=== PATIENT | male | born 1945 | race Caucasian/White ===

== ENCOUNTER 2024-08-09 14:40 | Emergency (ER) | payer OTHER, SELFPAY ==
[2024-08-09 14:43] VITALS: BP 149/57; PULSE 57; RESP 18; TEMP 36.6; O2SAT 99; BMI 22.3
--- NOTE | 2024-08-09 15:04 | ED_ITS ---
HPI - General Adult General Date Seen: 08/09/24 Chief complaint: Ear/Nose/Throat Problem Stated complaint: Left ear red and swollen Time Seen by Provider: 08/09/24 14:45 History of Present Illness HPI narrative: Very pleasant 78-year-old male. He is generally healthy. He gets his regular primary care through the [facility]. He has no history of diabetes, cancer, immunosuppression, or previous ear problems. He was referred to the emergency department today by the NH nurse triage line. History is obtained from the patient and supplemented by his . They note that he has had episodes of pain and sensitivity in his left ear for the past several weeks or even a couple of months. He notes that it is generally not bothersome during the day but sometimes when he sleeps with his left ear resting on the pillow he wakes up because of the pressure on his ear. He has not had any trouble with his hearing. No drainage or bleeding from his ear. He does not wear hearing aids or regularly wear ear plugs. Sometimes he does wear ear but headphones any does do a lot of swimming. Also from time to time he has had a little bit of pain in his left upper jaw/maxillary sinus this seems to correspond when his left ear is sensitive. He has not had any fever. No h eadache. No confusion. No blurry vision. In addition to that he has also had some ongoing discomfort in his left shoulder, that he thinks maybe arthritis. He notes that the shoulder pain is fairly chronic but actually sometimes gets better after swimming. Sometimes shoulder pain radiates down to his chest. When he woke up this morning his left ear was hurting any his also noted that the pain of his left ear looked a little bit red and swollen. The redness of the pinna is a new finding and has not been present before. No other new symptoms. No new fever. No new headache. No nausea or vomiting. He thinks he may have been sent to the ER today by the [facility] triage line because he told the nurse about his shoulder and chest pain. Related Data Previous Rx's ?Medication ?Instructions ?Recorded ciprofloxacin 0.3 %-dexamethasone 4 drp Otic (ear-left) BID 7 days 08/09/24 0.1 % ear drops,suspension #7.5 mL Allergies Allergy/AdvReac Type Severity Reaction Status Date / Time No Known Drug Allergies Allergy Verified 08/09/24 14:50 [facility] Social History Smoking Status: Never smoker Do you use any of these nicotine containing products: None Second hand tobacco smoke exposure: No How often do you have a drink containing alcohol: monthly or less How often do you have six or more drinks on one occasion: Never AUDIT-C Alcohol total score: 1 Non-prescribed substance use: denies use Exam Narrative: Exam Narrative: Constitutional: Appears well-developed and well-nourished. Active. Non-toxic appearing. Very polite. HENT: Head: Atraumatic. No signs of injury. No depressed skull fracture, Raccoon Eyes, Gnuyen's sign, or hemotympanum. Face normal. TMs normal. Right ear: Pinna, mastoid, canal are normal save for a small amount of dry skin on the lining of the canal. No foreign body. Left ear: Pinna is slightly red. Is not tender or warm to the touch. Mastoid is normal without redness or tenderness. Periauricular tissues are normal. In the canal there is some whitish exudate of material suggestive for otitis externa. No active bleeding. No sign of foreign body. TM slightly dull but not erythematous or bulging. Nose: No nasal discharge. Mouth/Throat: Mucous membranes are moist. Pharynx is normal. Tonsils symmetric. Uvula midline. Airway patent. Dentition and gums are normal. He has had root canal and crowns on his left upper molars. No signs of a gingival erythema or swelling. Eyes: Conjunctivae normal and EOM are normal. Pupils are equal, round, and reactive to light. Right eye exhibits no discharge. Left eye exhibits no discharge. No icterus. Neck: Normal range of motion. Neck supple. No adenopathy. No stridor. Cardiovascular: Normal rate and regular rhythm. No murmur heard. No murmurs, rubs, or gallops. Brisk capillary refill Pulmonary/Chest: Effort normal. No stridor. No respiratory distress. No wheezes.No rhonchi. No rales. No retractions. Musculoskeletal: Normal range of motion. No edema. No tenderness. No deformity. Neurological: Alert. Normal strength. No cranial nerve deficit or sensory deficit. Coordination normal. GCS eye subscore is 4. GCS verbal subscore is 5. GCS motor subscore is 6. Skin: Skin is warm. No rash noted. Const: Vital Signs, click to edit/add: Vital Signs - 24 hr 08/09/24 14:43 Temperature 97.8 F Pulse Rate [Pulse Oximeter] 57 L Respiratory Rate 18 Blood Pressure [Ri ght Upper Arm] 149/57 H Pulse Oximetry 99 Oxygen Delivery Me thod Room Air Course Vital Signs Vital signs: Initial Vital Signs Temperature 97.8 F 08/09/24 14:43 Temperature Source Temporal Artery Scan 08/09/24 14:43 Pulse Rate 57 L 08/09/24 14:43 Respiratory Rate 18 08/09/24 14:43 Blood Pressure 149/57 H 08/09/24 14:43 Blood Pressure Mean 87 08/09/24 14:43 Blood Pressure Position Sitting 08/09/24 14:43 Pulse Oximetry 99 08/09/24 14:43 Oxygen Delivery Method Room Air 08/09/24 14:43 Vital Signs Temperature 97.8 F 08/09/24 14:43 Pulse Rate 57 L 08/09/24 14:43 Respiratory Rate 18 08/09/24 14:43 Blood Pressure 149/57 H 08/09/24 14:43 Pulse Oximetry 99 08/09/24 14:43 Oxygen Delivery Method Room Air 08/09/24 14:43 Temperature 97.8 F 08/09/24 14:43 Pulse Rate 57 L 08/09/24 14:43 Respiratory Rate 18 08/09/24 14:43 Blood Pressure 149/57 H 08/09/24 14:43 Pulse Oximetry 99 08/09/24 14:43 Oxygen Delivery Method Room Air 08/09/24 14:43 Medical Decision Making [facility] Narrative Medical decision making narrative: This patient presents for evaluation of a couple of months of left ear pain and sensitivity when he rests dizzy on the pillow at night with new redness of the left pinna that began today.. The patient has an exam consistent with otitis externa. Differential considered in this patient with otalgia included mastoiditis, meningitis, perforation, cerumen impaction, mass, dental abscess, or peritonsillar abscess, referred pain, cholesteatoma, otitis externa, etc. at this point I do not think he is developing malignant otitis externa. He has no history of diabetes, cancer, immunosuppression or other risk factors for that. Tylenol or Ibuprofen for pain. Topical antibiotic drops for the externa are noted below. Return if increasing pain, fever, decrease in hearing or ear discharge. F Will treat otitis externa with Ciprodex drops. Recommend follow-up with his doctors at the NH or with [facility] within 7-10 days. Precautions for return to the ER were reviewed carefully. Questions answered. Incidentally he also told his phone triage nurse that he has been having some longstanding left shoulder pain that sometimes her 1st to his chest. He is not really here for a shoulder pain. He is not really having any cardiac sounding chest pain. At this point we decided not to do any further workup with chest x- ray, shoulder x-ray, EKG etc.. Discharge Plan Discharge Clinical Impression: Otitis externa Patient Disposition: Home, Self-Care Condition: Stable Instructions: Abby's Ear (ED) Additional Instructions: As we discussed, please start an antibiotic drops to treat the infection in your ear canal today. Monitor symptoms carefully. If you have worsening pain, increasing swelling of your ear, pain or swelling moving into the side of your head, if you have a headache, fever, confusion, or any concerns, you should return to the emergency department immediately. As long as you are getting better, it is okay to recheck with your doctors at the NH or with the [facility] E[facility] department in 7-10 days for re- evaluation. To schedule an appointment with [facility] call [phone] Prescriptions: New ciprofloxacin-dexamethasone 0.3-0.1 % drops,suspension 4 drp Otic (ear-left) BID 7 Days Qty: 7.5 0RF Stand Alone Forms: StartSampling Info Instructions
--- OUTSIDE RECORDS SUMMARY | 2024-08-09 16:12 | XMS_ITS | Clinical Summary ---
Author Organization [employer] Address [address] [place] [address]. [place] [address] Care Team Providers Care Financial Planner Name Role Phone Rajesh Enriquez MD Primary Care Provider [phone] Allergies Active Allergy Reactions Criticality Noted Date Comments Seasonal Allergies Unknown 03/07/2014 Medications albuterol (PROAIR HFA, PROVENTIL HFA, VENTOLIN HFA) 108 (90 BASE) MCG/ACT inhaler Inhale 2 puffs into the lungs 4 times daily Active ASPIRIN PO Take 81 mg by mouth daily Active fluticasone (FLONASE) 50 MCG/ACT nasal spray [place] 2 sprays into both nostrils daily as needed for rhinitis or allergies Active acetaZOLAMIDE (DIAMOX SEQUELS) 500 MG capsuleIndicati ons:Cataract Take 1 capsule (500 mg) by mouth every 12 hours for 2 doses 2 capsule 0 5 Active Social History Tobacco Use Types Packs/Day Years Used Date Smoking Tobacco: Passive Smo ke Exposure - Never Smoker Smokeless Tobacco: Never Alcohol Use Standard Drinks/Week Comments Yes 0 (1 standard drink = 0.6 oz pur e alcohol) 4-5 drinks per week Sex and Gender Information Value Date Recorded Sex Assigned at Not on file Legal Sex Male 3:42 AM [employer] Gender Identity Not on file Sexual Orientation Not on file Last Filed Vital Signs Vital Sign Reading Time Taken Comments Blood Pressure 128/62 05/21/2019 1:42 PM [employer] Pulse - - Temperature 36.4 C (97.6 F) 04/14/2015 6:30 AM [employer] Respiratory Rate 16 04/14/2015 8:38 AM [employer] Oxygen Saturation 98% 04/14/2015 8:38 AM [employer] Inhaled Oxygen Concentration - - Weight 75.8 kg (167 lb) 05/21/2019 1:42 PM [employer] Height 180.3 cm (5' 11) 05/21/2019 1:42 PM [employer] Body Mass Index 23.29 05/21/2019 1:42 PM [employer]ER Plan of Treatment Not on file Medical Devices Implanted Type [employer] Device Identifier Shelf Expiration Date Model / Serial / Lot Eye Imp Iol Braeden Pcl [id number] Acrysof Iq 17.0 Implanted:Qty: 1 on 04/14/2015 by Ramona Montejo MD at [facility] Left: Eye [employer] 07/30/2019 [id number] / [id number] / Insurance [employer] MED[employer]ARE Care Teams Financial Planner Relationship Specialty Start Date End Date Rajesh Enriquez MD PCP - General Internal Medicine 03/11/14
--- OUTSIDE RECORDS SUMMARY | 2024-08-09 16:12 | XMS_ITS | Clinical Summary ---
Author Organization [employer] Address [address] [place] [id number] Care Team Providers Care Hospital Receptionist Name Role Phone Rajesh Enriquez MD Primary Care Provider [phone] Allergies No known active allergies Medications albuterol HFA (PROAIR HFA) 90 mcg/actuation inhalerIndication s:Mild intermittent asthma without complication (HC) Inhale 2 Puffs by mouth every 6 hours if needed. 17 g 1 03/14/2016 Active acetaminophen (TYLENOL EXTRA STRGTH) 500 mg tablet 1,000 mg. 11/07/2022 Active Active Problems Problem Noted Date Diagnosed Date Mild persistent asthma with status asthmaticus 1 06/27/2021 Erectile dysfunction of organic origin 7 Retinal hemorrhage of left eye 12/24/2015 Overview (12/24/2015): Seen dr barry, presumed vein occlusion. Carotid us 11/2015. Recommend [facility] 1. Small noncalcified left carotid bulb plaque producing minor stenosis so far less than 50 percent an old right carotid plaque or stenosis. 2. 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 Screening for unspecified malignant neoplasm Overview (07/06/2021): .colonoscopy 06/2021, adenoma x 1 repeat prn colonoscopy 10/29, nl repeat 10 yrs , dr cerna colonoscopy 11/2010, no repeat 10 years, dr costello Unspecified asthma(493.90) 08/23/2005 Allergic rhinitis, cause unspecified 08/23/2005 Lumbago 08/23/2005 Hypertrophy of prostate with urinary obstruction and other lower urinary tract symptoms (LUTS) 08/23/2005 Palpitations 08/23/2005 Overview (08/23/2005): event monitor (? amari) nl gxt ekg 06/05 Encounters Date Type Department Care Team Description 06/27/2024 2:30 PM SLIP COVER ESTIMATOR Orders Only [facility] [address] [place] [id number] Laboratory, [facility] 06/27/2024 Travel 05/28/2024 8:15 AM SLIP COVER ESTIMATOR Telemedicine [facility] [address] [place] [address] Rajesh Enriquez MD Telehealth ([place]); Medicare ANNUAL (subsequent) Visit (Annual, ) 05/25/2024 Travel from Last 3 Months Immunizations Immunization Administration Dates Next Due COVID-19 vaccine (Rallyhood-Bio NTech 30mcg/0.3mL) 12YO+ [place]-SUCROSE PF, MDV 08/24/2021 COVID-19 vaccine ([employer]-Bio NTech 30mcg/0.3mL) PF, MDV 02/01/2021,07/04/2020,06/13/2020 Influenza Virus, Unspecified 01/24/2011, 02/18/2010,03/01/2009,2007,01/29/2007,03/01/2005 Influenza, High-dose Inactivated 024,12/22/2017,02/27/2017,2015,03/17/2015,02/24/2014 Influenza, High-dose Quadriv alent Inactivated 02/01/2023,02/12/2022,01/30/2021,2019 Influenza, IIV3 (Age >=3 years) 04/10/20 13,04/09/2012,02/12/2010,2008,03/06/2007,03/02/2006 Influenza, IIV4 03/04/2019 Pneumococcal Poly,23-Valent (Pneumovax) 04/09/2012 Pneumococcal conj 13-Valent (Prevnar 13) 03/17/2015 Pneumococcal, Unspecified 05/01/2007 TD, UNSPECIFIED 05/01/2004,08/29/1996 Td (Age >=7 Years) 03/01/1996 Td, Preservative Free (age > = 7 Years) 10/01/2013 Tdap 11/17/2023,11/10/2005 Zoster (Shingrix-RZV, recombinant) 04/10/2020, Zoster (Zostavax-ZVL, live) 04/16/2009 Family History Medical History Relation Name Comments Arthritis Brother 84 skin cancer Heart Disease Father d mi (93), cva , skin cancer Osteoporosis Mother d 104 Atrial fibrillation Sister Cancer-breast Sister 80 Nephrolithiasis Sister Relation Name Status Comments Brother Alive Father Mother Sister Alive Social History Tobacco Use Types Packs/Day Years Used Date Smoking Tobacco: Never Smokeless Tobacco: Never Tobacco Cessation:Counseling Given: Yes Alcohol Use Standard Drinks/Week Comments Not Currently 0 (1 standard drink = 0.6 oz pur e alcohol) PHQ-2 Answer Date Recorded PHQ-2 TOTAL SCORE 0 05/28/2024 Financial Resource Strain Answer Date R ecorded Difficulty of Paying Living Expenses Not on file 04/21/2021 Difficulty of Paying Living Expenses Not on file 04/21/2021 Sex and Gender Information Value Date Recorded Sex Assigned at Not on file Legal Sex Male 5:37 AM SLIP COVER ESTIMATOR Gender Identity Not on file Sexual Orientation Not on file Obstetrics History Last Filed Vital Signs Vital Sign Reading Time Taken Comments Blood Pressure 120/70 04/27/2023 7:48 AM SLIP COVER ESTIMATOR Pulse 72 04/26/2022 8:04 AM SLIP COVER ESTIMATOR Temperature 36.7 C (98 F) 06/18/2019 1:04 PM SLIP COVER ESTIMATOR Respiratory Rate 16 03/03/2022 8:57 AM CDT Oxygen Saturation 100% 03/03/2022 8:57 AM CDT Inhaled Oxygen Concentration - - Weight 75.8 kg (167 lb) 04/27/2023 7:48 AM SLIP COVER ESTIMATOR Height 179.1 cm (5' 10.5) 04/27/2023 7:48 AM CS T Body Mass Index 23.62 04/27/2023 7:48 AM SLIP COVER ESTIMATOR Plan of Treatment Health Maintenance Due Date Last Done Comments RSV vaccine for adults or (1 - 1-dose 75+ series) 2021 BMI (ht and wt on same day) for age 18+ 04/27/2024 04/27/2023, 04/26/2022, 03/03/2022, Additional history exists COVID-19 vaccine series (2023- season) 2024 04/16/2024, 02/01/2023, 02/12/2022, Additional history exists Depression screening for age 12+ 05/28/2025 05/28/2024, 04/27/2023, 04/26/2022, Additional history exists Medicare Wellness for age 65+ 05/29/2025, 04/27/2023, 04/26/2022, Additional history exists Tetanus booster 11/16/2033 11/17/2023, 0606/2013, 11/10/2005, Additional history exists Hepatitis C screening for ag e 18-79 Completed 04/09/2012 Pneumococcal series for age 50+ Completed 03/17/2015, 04/09/2012, 05/01/2007 Zoster (shingles) series for age 50+ Completed 04/10/2020, 12/30/2019, 04/16/2009 Tdap Completed 11/17/2023, 11/10/2005 Influenza Vaccine Completed 02/14/2024, , 12/22/2017, Additional history exists Procedures Procedure Name Priority Date/Time Associated Diagnosis Comments TSH Routine 06/27/2024 2:20 PM SLIP COVER ESTIMATOR Hypothyroidism, unspecified type ANTI HCV Routine 04/09/2012 8:26 AM SLIP COVER ESTIMATOR Need for hepatitis C screening test from Last 3 Months or Most Recently Relevant to Health Maintenance Results * TSH (06/27/2024 2:20 PM SLIP COVER ESTIMATOR) TSH 3.99 0.40 - 4.50 mIU/L [facility] Blood BLOOD SPECIMEN / Unknown 06/27/2024 2:20 PM SLIP COVER ESTIMATOR 06/27/2024 2:22 PM SLIP COVER ESTIMATOR us Rajesh Enriquez MD CHEMISTRY Final Resu lt [employer] [facility] [address] [place] [address], [facility] [address] [place] [address] * ANTI HCV (04/09/2012 8:26 AM SLIP COVER ESTIMATOR) ANTI HCV Non-reacti ve [facility] Blood specimen (specimen) BLOOD SPECIMEN / Unknown 04/09/2012 8:26 AM SLIP COVER ESTIMATOR 04/09/2012 8:01 AM SLIP COVER ESTIMATOR Rajesh Enriquez MD SEND OUTS Final Resu lt [facility] [place] ZIP [id number] [place] [id number] from Last 3 Months or Most Recently Relevant to Health Maintenance Insurance [facility] MEDICARE ADVANTAGE MR Advance Directives * Full Code (Latest Code Status on File) Date Activated Date Inactivated Comments 01/14/2019 6:13 AM 01/14/2019 11:30 AM Care Teams Hospital Receptionist Relationship Specialty Start Date End Date Rajesh Enriquez MD [address] [place] [address] PCP - General 01/04/05
== END 2024-08-09 16:11 | disposition home or self-care (01) ==
LOC: ED 16:10
PROVIDERS: Emergency Provider Emergency Medicine
DX: H60.92 Unspecified otitis externa, left ear (principal)
CPT/HCPCS: 99283